=== PATIENT | female | born 2000 | race Two or more races ===

== ENCOUNTER 2022-03-15 15:56 | Emergency (ER) | payer MEDICAID, OTHER ==
[~2022-03-15] VITALS: Ht 162.6 cm; Wt 109.0 kg
[2022-03-15 16:47] VITALS: BP 150/102
[2022-03-15] MEDS ORDERED: CIPR-173 PO ×2 (17:25→17:53)
[2022-03-15] MEDS ORDERED: TRIA0.02 TOP ×2 (17:25→17:53)
== END 2022-03-15 17:58 | disposition home or self-care (01) ==
LOC: ER 15:56
DX: K60.2 Anal fissure, unspecified (principal); R19.7 Diarrhea, unspecified

== ENCOUNTER 2025-02-19 15:17 | Emergency (ER) | payer MEDICAID, OTHER ==
[~2025-02-19 15:17] MED LIST: CIPR-173 PO; TRIA0.02 TOP
[2025-02-19] MEDS ORDERED: AUG875T PO (17:01)
[2025-02-19] MEDS ORDERED: CLIN1CAP70 PO (17:01)
[2025-02-19] MEDS ORDERED: IBU600T PO (17:02)
== END 2025-02-19 15:19 | disposition left against medical advice (07) ==
LOC: ER 15:17
DX: R68.84 Jaw pain (principal); Z53.21 Procedure and treatment not carried out due to patient leaving prior to being seen by health care provider

== ENCOUNTER 2025-02-19 15:18 | Emergency (ER) | payer OTHER, MEDICAID ==
[~2025-02-19] VITALS: Ht 162.6 cm; Wt 128.3 kg
[2025-02-19 15:19] VITALS: BP 140/100; PULSE 111; RESP 18; TEMP 97.9; O2SAT 99
[2025-02-19] MEDS: HYDROcodone-ACET 10/325MG TAB PO ONE (16:11)
--- NOTE | 2025-02-19 16:14 | ED.PDOC ---
History of Present Illness HPI Comments 24-year-old, morbidly obese F presents with c/c of tooth pain, with associated facial swelling. Patient reports on being referred to the ED after being evaluated by her dentist, earlier, today, for lower, right tooth pain. Swelling is localized to the right side of her face. Denies any recent head or facial trauma or injuries. Denies any further acute symptoms. Chief Complaint: Tooth Pain Time Seen by MD: 15:50 Primary Care Provider: NANCY Fraga Notes: Nurses Notes, Medications, Allergies Allergies: Coded Allergies: NO KNOWN ALLERGIES (Unverified , 03/15/22) Home Meds Active Scripts Triamcinolone Acetonide (Triamcinolone Acetonide) 0.025 % Cre, 1 APPLIC TOP BID, #30 GRAMS Prov:MARY LUNDBERG 03/15/22 Ciprofloxacin Hcl (Cipro) 500 Mg Tab, 1 TAB PO BID, #14 TAB Prov:MARY LUNDBERG 03/15/22 Information Source: Patient Mode of Arrival: Ambulatory Severity: Moderate Timing: Hours Duration: Since onset Prehospital treatment: None Past Medical History PAST MEDICAL HISTORY: Denies Surgical History: Denies all surgeries RESOLUTION EXPERT History: Denies all RESOLUTION EXPERT Hx Family History Family History: Reviewed,noncontributory to illness Social History Smoker: Non-Smoker Alcohol: Denies ETOH Use Drugs: Denies Drug Use Lives In: Home All Other Systems: Reviewed and Negative (Comprehensive review of systems are negative unless otherwise stated in HPI) Physical Exam General Appearance: Moderate Distress HEENT: Normal ENT Inspection, Pharynx Normal, TMs Normal Neck: Full Range of Motion, Non-Tender, Normal, Normal Inspection Respiratory: Chest Non-Tender, Lungs Clear, No Accessory Muscle Use, No Re spiratory Distress, Normal Breath Sounds Cardiovascular: No Edema, No JVD, No Murmur, No Gallop, Normal Peripheral Pulses, Regular Rate/Rhythm Breast Exam: Deferred Gastrointestinal: No Organomegaly, Non Tender, No Pulsatile Mass, Normal Bowel Sounds, Soft Genitalia: Deferred Pelvic: Deferred Rectal: Deferred Extremities: No calf tenderness, Normal capillary refill, Normal inspection, Normal range of motion, Non-tender, No pedal edema Musculoskeletal : Apperance: Normal Neurologic: Alert, aircraft structure mechanic II-XII nml as Tested, No Motor Deficits, Normal Affect, Normal Mood, No Sensory Deficits Cerebellar Function: Normal Reflexes: Normal Skin: Wounds (Right lower teeth submandibular) Peripheral Pulses: 3+ Radial (R), 3+ Radial (L) Lymphatic: No Adenopathy Was a procedure done? Was a procedure done?: No Differential Dx Considerations may include: Dental abscess, dental caries, sepsis, among others X-Ray, Labs, Meds, VS Vital Signs Date Time Temp Pulse Resp B/P (MAP) Pulse Ox O2 Delivery O2 Flow Rate FiO2 02/19/25 15:19 97.9 111 18 140/100 99 97.9 Lab Test 02/19/25 15:48 Range/Units White Blood Count 12.5 H 4.4-10.8 10^3/uL Red Blood Count 4.79 4.0-5.20 10^6/uL Hemoglobin 14.3 12.2-16.2 g/dL Hematocrit 42.1 36.0-46.0 % Mean Corpuscular Volume 87.7 80.0-100.0 fL Mean Corpuscular Hemoglobin 29.9 28.0-32.0 pg Mean Corpuscular Hemoglobin Concent 34.1 32.0-36.0 g/dL Red Cell Distribution Width 14.3 11.8-14.3 % Platelet Count 329 140-450 10^3/uL Mean Platelet Volume 9.5 6.9-10.8 fL Neutrophils (%) (Auto) 73.7 37.0-80.0 % Lymphocytes (%) (Auto) 17.0 10.0-50.0 % Monocytes (%) (Auto) 7.1 0.0-12.0 % Eosinophils (%) (Auto) 1.5 0.0-7.0 % Basophils (%) (Auto) 0.7 0.0-2.0 % Neutrophils # (Auto) 9.2 H 1.6-8.6 10 ^3/uL Lymphocytes # (Auto) 2.1 0.4-5.4 10 ^3/uL Monocytes # (Auto) 0.9 0-1.3 10 ^3/uL Eosinophils # (Auto) 0.2 0-0.8 10 ^3/uL Basophils # (Auto) 0.1 0-0.2 10 ^3/uL Nucleated Red Blood Cells 0.0 % Sodium Level 143 136-145 mmol/L Potassium Level 4.4 3.5-5.1 mmol/L Chloride Level 107 98-107 mmol/L Carbon Dioxide Level 26 20-31 mmol/L Anion Gap 10 5-15 Blood Urea Nitrogen 6 L 9-23 mg/dL Creatinine 0.70 0.550-1.02 mg/dL Glomerular Filtration Rate Calc 125 >90 mL/min BUN/Creatinine Ratio 8.6 L 10.0-20.0 Serum Glucose 99 74-106 mg/dL Lactic Acid Level 2.2 *H 0.4-2.0 mmol/L Calcium Level 9.4 8.7-10.4 mg/dL Total Bilirubin 0.6 0.2-1.0 mg/dL Aspartate Amino Transferase (AST) 34 13-40 U/L Alanine Aminotransferase (ALT) 41 H 7-40 U/L Alkaline Phosphatase 99 46-116 U/L Total Protein 8.3 H 5.7-8.2 g/dL Albumin 4.7 3.2-4.8 g/dL Current Medications Medications (Trade) Dose Ordered Sig/Claude Route Start Time Stop Time Status Last Admin Acetaminophen/ Hydrocodone Bitart (Latexo 10/325MG Tab) 1 tab ONCE ONCE PO 02/19/25 16:15 02/19/25 16:16 DC 02/19/25 16:11 Patient alert. Has a infection of the right lower teeth extending into the submandibular area. On examination no obvious abscess. Vitals stable. She does not need her teeth pulled. Explained to the family that she will need tooth extraction along with cleaning the gum area. Was given prescription of Augmentin clindamycin antibiotic. No facial cellulitis. Was instructed to follow up [facility] as soon as possible for further dental care. This process needs to be dealt with oral surgeon after antibiotic treatment. Was told to come back if there is any problem. Time of 1ST Reevaluation: 16:20 Reevaluation 1ST: Unchanged Patient Education/Counseling: Diagnosis, Treatment, Need For Follow Up Family Education/Counseling: No Family Present SEPSIS Sepsis Screen Date sepsis recognized/suspect: Feb 19, 2025 Time Sepsis recognized/suspect: 1521 Recent Procedure: No On Antibiotic Therapy: Yes Respiratory Rate >20: No Heart Rate >90: Yes Temp<36 C (96.8 F) or >38.3 C: No SBP <90 or MAP <65 mmHG: No New Acute Mental Status Change: No Is the patient on CPAP, BIPAP,: No Physician Orders Blood Culture (02/19/25 15:25) Urinalysis (02/19/25 15:25) Vital Signs Date Time Temp Pulse Resp B/P (MAP) Pulse Ox O2 Delivery O2 Flow Rate FiO2 02/19/25 15:19 97.9 111 18 140/100 99 97.9 Laboratory Tests Test 02/19/25 15:48 Lactic Acid Level 2.2 mmol/L (0.4-2.0) *H White Blood Count 12.5 10^3/uL (4.4-10.8) H Medications Medications Dose Ordered Sig/Claude Route Start Time Stop Time Status Last Admin Dose Admin Acetaminophen/ Hydrocodone Bitart 1 tab ONCE ONCE PO 02/19/25 16:15 02/19/25 16:16 DC 02/19/25 16:11 Departure 1 Departure Time of Disposition: 17:01 Impression: Primary Impression: Dental infection Disposition: 01 HOME / SELF CARE / HOMELESS Condition: Good e-Prescriptions Ibuprofen Micronized (MOTRIN TABLET) 600 Mg Tb 600 MG PO TID PRN for 3 Days, #9 TAB *Black box warning-NSAIDS can increase risk of [place] & hypertension, GI irritation, ulceration, bleed, perferation. Do not use post cardiac surgery. Use short duration/lowest effective dose. Prov: OLYA CALVIN MD 02/19/25 Clindamycin Hcl (Clindamycin Hcl) 300 Mg Cap 1 CAP PO TID for 10 Days, #30 CAP Prov: OLYA CALVIN MD 02/19/25 Amoxicillin & Pot Clavulanate (AUGMENTIN TABLET) 875 Mg Tb 875 MG PO BID for 10 Days, #20 TAB Prov: OLYA CALVIN MD 02/19/25 Discharged With: Self Critical Care Note Critical Care Time?: No Stability Stability form required: No Heart Score Heart Score: Heart Score Response (Comments) Value History N/A 0 EKG N/A 0 Age N/A 0 Risk Factors N/A 0 Troponin N/A 0 Total 0 I personally scribed for OLYA CALVIN MD ([email or web address]) on 02/19/25 at 16:13. Electronically submitted by Darren Lange ([email or web address]). OLYA CALVIN MD Feb 19, 2025 16:13
[2025-02-19 16:16] LABS: Hematocrit 42.1 % (36.0-46.0); Hemoglobin 14.3 g/dL (12.2-16.2); Mean Corpuscular Hemoglobin 29.9 pg (28.0-32.0); Mean Corpuscular Volume 87.7 fL (80.0-100.0); Nucleated Red Blood Cells % 0.0 %
[2025-02-19 16:32] LABS: Alanine Aminotransferase 41 U/L (7-40); Albumin 4.7 g/dL (3.2-4.8); Alkaline Phosphatase 99 U/L (46-116); Anion Gap 10 (5-15); BUN/Creatinine Ratio 8.6 (10.0-20.0); Bilirubin, Total 0.6 mg/dL (0.2-1.0); Blood Urea Nitrogen 6 mg/dL (9-23); Calcium 9.4 mg/dL (8.7-10.4); Carbon Dioxide 26 mmol/L (20-31); Chloride 107 mmol/L (98-107); Glucose 99 mg/dL (74-106); Potassium 4.4 mmol/L (3.5-5.1); Sodium 143 mmol/L (136-145); Total Protein 8.3 g/dL (5.7-8.2)
[2025-02-19 16:41] LABS: Lactic Acid w/Reflex 2.2 mmol/L (0.4-2.0)
[2025-02-19] MEDS ORDERED: AUG875T PO (17:01)
[2025-02-19] MEDS ORDERED: CLIN1CAP70 PO (17:01)
[2025-02-19] MEDS ORDERED: IBU600T PO (17:02)
[2025-02-19] MEDS ORDERED: cefTRIAXone SOD 1,000 MG VL IM ONE (17:15)
[2025-02-19] MEDS ORDERED: CLINDAMYCIN HCL 150 MG CAP PO ONE (17:15)
== END 2025-02-19 16:48 | disposition home or self-care (01) ==
LOC: ER 15:18
DX: K04.7 Periapical abscess without sinus (principal); E66.01 Morbid (severe) obesity due to excess calories; Z79.899 Other long term (current) drug therapy; Z68.42 Body mass index [BMI] 45.0-49.9, adult
CPT/HCPCS: 36415; 80053; 83605; 85025; 87040